=== PATIENT | female | born 1985 | race Caucasian/White ===

== ENCOUNTER 2020-12-11 20:22 | Outpatient (CLI) | payer SELFPAY ==
[2020-12-11 21:00] VITALS: BP 81/51
[2020-12-11] MEDS ORDERED: CYCLOBENZAPRINE 10 MG TAB PO ONE (21:53)
== END 2020-12-11 22:25 | disposition home or self-care (01) ==
LOC: TRG 20:22 → APU 20:23 → TRG 22:25
PROVIDERS: ATTEND Obstetrics & Gynecology
DX: O47.1 False labor at or after 37 completed weeks of gestation (principal); Z3A.38 38 weeks gestation of pregnancy
CPT/HCPCS: 59025

== ENCOUNTER 2020-12-14 09:15 | Inpatient (IN) | payer SELFPAY ==
[2020-12-14] MEDS ORDERED: BICITRA ORAL LIQD 30ML PO ONE (09:42)
[2020-12-14] MEDS ORDERED: FAMOTIDINE 20 MG/2 ML INJ IV ONE (09:42)
[2020-12-14] MEDS ORDERED: METOCLOPRAMIDE 10 MG/2 ML INJ IV ONE (09:42)
--- NOTE | 2020-12-14 09:45 | History and Physical Report ---
History of Present Illness Date of examination: 12/14/20 Date of admission: 12/14/20 09:15 Chief complaint: elective repeat section History of present illness: ERCS multiparity no records available Past History Past Surgical History: section - Obstetrical History : 3 Medications and Allergies Allergies Allergy/AdvReac Type Severity Reaction Status Date / Time No Known Allergies Allergy Verified 12/11/20 21:58 Home Medications Medication Instructions Recorded Confirmed Last Taken Type Ibuprofen [Motrin] 600 mg PO Q8H PRN #60 tablet 12/14/20 Unknown Rx oxyCODONE /ACETAMINOPHEN [Percocet 1 tab PO Q6HR PRN #20 tablet 12/14/20 Unknown Rx 5/325] Results Result Diagrams: 12/15/20 00:42 All other labs normal. Assessment and Plan NPO, connie cleaner to OR for procedure informed consent obtained with medical assembler Jazmin Pascual MD
[2020-12-14] MEDS ORDERED: OXYTOCIN DRIP 30 UNITS/500 ML BAG IV SCH ×2 (10:00→14:00)
--- NOTE | 2020-12-14 10:11 | Anesthesia Day of Surgery ---
Anesthesia Day of Surgery - Day of Surgery Patient Examined: Yes Patient H&P Reviewed: Yes Patient is NPO: Yes Beta Blockers: No Cardiac Clearance: No Pulmonary Clearance: No Beto's Test: N/A
--- NOTE | 2020-12-14 10:12 | Anesthesia Consultation ---
Anesthesia Consult and Med Hx Date of service: 12/14/20 - Airway Anesthetic Teeth Evaluation: Good ROM Head & Neck: Adequate Mental/Hyoid Distance: Adequate Mallampati Class: Class II Intubation Access Assessment: Good - Pulmonary Exam CTA: Yes - Cardiac Exam Cardiac Exam: RRR - Pre-Operative Health Status ASA Pre-Surgery Classification: ASA2 Proposed Anesthetic Plan: Spinal - Pre-Anesthesia Comment Pre-Anesthesia Comments: csection x2 - Pulmonary Hx Smoking: No Hx Asthma: No Hx Respiratory Symptoms: No SOB: No COPD: No Home Oxygen Therapy: No Hx Pneumonia: No Hx Sleep Apnea: No - Cardiovascular System Hx Hypertension: No Hx Coronary Artery Disease: No Hx Heart Attack/AMI: No Hx Angina: No Hx Percutaneous Transluminal Coronary Angioplasty (PTCA): No Hx Cardia Arrhythmia: No Hx Pacemaker: No Hx Internal Defibrillator: No Hx Valvular Heart Disease: No Hx Heart Murmur: No Hx Peripheral Vascular Disease: No - Central Nervous System Hx Neuromuscular Disorder: No Hx Seizures: No CVA: No Hx Back Pain: No Hx Psychiatric Problems: No - Gastrointestinal Hx Ulcer: No Hx Gastroesophageal Reflux Disease: No - Endocrine Hx Renal Disease: No Hx End Stage Renal Disease: No Hx Cirrhosis: No Hx Liver Disease: No Hx Insulin Dependent Diabetes: No Hx Non-Insulin Dependent Diabetes: No Hx Thyroid Disease: No Hx Hypothyroidism: No Hx Hyperthyroidism: No - Hematic Hx Anemia: No Hx Sickle Cell Disease: No - Other Systems Hx Alcohol Use: No Hx Substance Use: No Hx Cancer: No Hx Obesity: No
[2020-12-14] MEDS ORDERED: ONDANSETRON 4 MG/2 ML INJ IV PRN (10:13)
[2020-12-14] MEDS ORDERED: NALOXONE 0.4 MG/1 ML INJ IV PRN ×2 (10:13→13:22)
[2020-12-14] MEDS ORDERED: HYDROmorphone 1 MG/1 ML INJ IV PRN (10:13)
[2020-12-14] MEDS: LACTATED RINGERS 1,000 ML IV SCH ×2 (10:15→23:22)
[2020-12-14 10:32] LABS: Basophils # (Auto) 0.1 K/mm3 (0.0-0.1); Basophils % (Auto) 0.6 % (0.0-1.8); Eosinophils % (Auto) 0.4 % (0.0-4.3); Hematocrit 36.5 % (30.3-42.9); Hemoglobin 12.7 gm/dl (10.1-14.3); Lymphocytes # (Auto) 1.2 K/mm3 (1.2-5.4); Lymphocytes % (Auto) 12.8 % (13.4-35.0); Mean Corpuscular HGB Conc 35 % (30-34); Mean Corpuscular Volume 97 fl (79-97); Monocytes # (Auto) 0.5 K/mm3 (0.0-0.8); Monocytes % (Auto) 5.5 % (0.0-7.3); Platelet Count 199 K/mm3 (140-440); Red Blood Count 3.76 M/mm3 (3.65-5.03)
[2020-12-14] MEDS ORDERED: BUPIVACAINE/PF (0.5%) 5 MG/1 ML 30 ML VIAL INFILTRATI ONE (11:03)
[2020-12-14] MEDS ORDERED: dexAMETHasone 20 MG/5 ML VIAL ONE (11:04)
[2020-12-14] MEDS ORDERED: SODIUM CHLORIDE 0.9% 100 ML ONE (11:04)
[2020-12-14] MEDS ORDERED: ceFAZolin/Water 2 GM/20 ML 2 GM/20 ML SYRINGE IV ONE (11:29)
[2020-12-14] MEDS ORDERED: PHENYLEPHRINE/NS 1,000 MCG/10 ML SYRINGE (OR USE) IV ONE ×2 (11:46→12:45)
[2020-12-14] MEDS ORDERED: WATER FOR IRRIG STERILE 1,500 ML BOTTLE IR ONE (11:50)
[2020-12-14] MEDS ORDERED: SODIUM CHLORIDE 0.9% IRR 1,500 ML BOTTLE IR ONE (11:50)
[2020-12-14] MEDS ORDERED: ONDANSETRON 4 MG/2 ML INJ ONE ×2 (12:05)
[2020-12-14] MEDS ORDERED: FUROSEMIDE 40 MG/4 ML INJ ONE (12:44)
[2020-12-14] MEDS ORDERED: WITCH HAZEL/ GLYCERIN PAD TP PRN (13:22)
[2020-12-14] MEDS ORDERED: MORPHINE 2 MG/1 ML INJ IV PRN (13:22)
[2020-12-14] MEDS ORDERED: MORPHINE 4 MG/1 ML INJ IV PRN (13:22)
[2020-12-14] MEDS ORDERED: MAGNESIUM HYDROXIDE (MOM) ORAL LIQD UDC PO PRN (13:22)
[2020-12-14] MEDS ORDERED: KETOROLAC 30 MG/1 ML INJ IV PRN (13:22)
[2020-12-14] MEDS ORDERED: IBUPROFEN 600 MG TAB PO PRN (13:22)
[2020-12-14] MEDS ORDERED: SENNOSIDES 8.6 MG TAB PO PRN (13:22)
[2020-12-14] MEDS ORDERED: ACETAMINOPHEN 325 MG TAB PO PRN (13:22)
[2020-12-14] MEDS ORDERED: LANOLIN/ZINC/DIMETHICONE (LANSINOH) 7 GM TP PRN (13:22)
[2020-12-14] MEDS ORDERED: PROMETHAZINE 25 MG RECT SUPP PR PRN (13:22)
[2020-12-14] MEDS ORDERED: SIMETHICONE 80 MG CHEW TAB PO PRN (13:22)
--- NOTE | 2020-12-14 13:35 | Procedure Note ---
OB Delivery Note - Delivery Date of Delivery: 12/14/20 Surgeon: JORDAN LARSEN Estimated blood loss: other (600ml) - Section Preop diagnosis: repeat , desires sterilization Postop diagnosis: same section procedure: repeat low transverse, bilateral tubal ligation Disposition: PACU Complications: none Narrative: Preop diagnosis: IUP at 38.4 weeks, via section x2. Multiparity desires permanent surgical sterilization Postop diagnosis: Same,delivered Procedure: Repeat low transverse section via Pfannenstiel incision, Modified Ramez bilateral tubal ligation Surgeon: Dr. Jordan Larsen Anesthesia spinal Complications: intraoperative hematuria, suspect urethral trauma EBL 600ml IV fluids 800 mL Urine output 200mL, clear Drains Dewey to gravity Findings: Viable female with weight 3140gms and 8,9, normal uterus tubes and ovaries bilaterally Procedure: Patient was consented in OB triage,then taken to the operating room where she received excellent spinal anesthesia. She was then placed in the dorsal supine position with a leftward tilt. The abdomen was prepped and draped in a sterile fashion, and a timeout was verified. Adequate anesthesia was confirmed prior to the skin incision. A Pfannenstiel skin incision was made with a scalpel taken down to the underlying structures and the fascia was incised in the midline. The incision was extended laterally with curved Bovie cautery, the superior and inferior aspects of the fascial incisions were grasped with Sruthi clamps and the rectus muscles dissected sharply. The abdomen was entered bluntly in the midline carried down inferiorly with good visualization of the bladder. Patient was then noted to have multiple pelvic adhesions that were taken down sharply with Metzenbaum scissors. The vesicouterine peritoneum was tented with Ukrainian forceps and incised in the midline with Metzenbaum scissors and the vesicouterine peritoneum taken down sharply. Bladder blade was inserted, the uterine incision was made sharply with a scalpel. The inferior and superior aspect of the uterine incisions were extended bluntly, the baby's head was delivered atraumatically. The remainder of the delivery was atraumatic, no nuchal cord. The cord was clamped and cut and baby handed to waiting NICU team. Cord blood obtained. An intact placenta with three-vessel cord delivered manually. The uterus was then cleared of all clots and debris and the uterus exteriorized. The uterine incision was closed with 3 layers of 0 chromic with excellent hemostasis. The abdomen was then irrigated with warm normal saline and the uterus placed back into the abdomen atraumatically. A second look at the uterine incision and ensured hemostasis. At this point the Dewey catheter was noted to have blood-tinged urine.125 cc of sterile marker backfilled into the bladder to assure the integrity of the bladder. No spill into the abdomen was noted. Lasix 5 mg IV was given x1 dose with excellent urine output. Given assurance of the integrity of the bladder and the renal collecting system, the peritoneum was then closed with 3-0 Vicryl, the rectus muscles approximated with 3-0 Vicryl, and the fascia closed with 0 Vicryl in the usual fashion. The skin was then closed with 4-0 Monocryl. A pressure dressing was applied. All sponge needle and instrument counts were correct x2. There were no complications. Mom and baby to PACU in stable condition. [id number] mL Jazmin Larsen MD - Infant A at 1 minute: 8 at 5 minutes: 9 Gender: Female (weight 3140gms)
--- NOTE | 2020-12-14 13:50 | Progress Note ---
Spinal Anesthesia Block - Spinal Anesthesia Block Start Time: 11:36 Stop Time: 11:42 Performed by:: SARAH SAMUEL Procedure: Patient IDed, H&P reviewed, all questions and concerns were answered, and consent was signed. Timeout was performed at bedside. Patient in sitting position. Sterile prep and drape was performed. [3] ml of 1% lidocaine skin wheal at L[3]- L [4]. Needle introducer advanced. 25 gauge spinal needle advanced. Clear, free flowing CSF. negative blood, negative paresthesia. Spinal dose given. All needles removed. Patient tolerated procedure.
--- NOTE | 2020-12-14 13:54 | Progress Note ---
Objective - Constitutional Vitals: Vital Signs - 12hr 12/14/20 12/14/20 12/14/20 09:50 09:51 09:55 Temperature Pulse Rate 103 H 101 H 107 H Respiratory Rate Blood Pressure 106/63 O2 Sat by Pulse 98 97 Oximetry 12/14/20 12/14/20 12/14/20 10:00 10:09 10:36 Temperature 98.6 F Pulse Rate 106 H 124 H Respiratory 20 Rate Blood Pressure O2 Sat by Pulse 98 98 Oximetry 12/14/20 12/14/20 12/14/20 10:41 10:46 10:51 Temperature Pulse Rate 103 H 99 H 86 Respiratory Rate Blood Pressure O2 Sat by Pulse 98 100 99 Oximetry 12/14/20 12/14/20 12/14/20 10:56 11:01 11:06 Temperature Pulse Rate 89 79 95 H Respiratory Rate Blood Pressure O2 Sat by Pulse 99 99 100 Oximetry 12/14/20 12/14/20 12/14/20 11:11 11:16 13:30 Temperature 97.6 F Pulse Rate 86 74 54 L Respiratory 14 Rate Blood Pressure 113/60 O2 Sat by Pulse 98 99 98 Oximetry 12/14/20 12/14/20 12/14/20 13:35 13:40 13:45 Temperature Pulse Rate 52 L 53 L 54 L Respiratory 14 15 15 Rate Blood Pressure 115/68 98/48 107/69 O2 Sat by Pulse 98 98 98 Oximetry - Labs CBC & Chem 7: 12/14/20 10:14 Labs: Abnormal lab results 12/14/20 Range/Units 10:14 MCH 34 H (28-32) pg MCHC 35 H (30-34) % Lymph % (Auto) 12.8 L (13.4-35.0) % Seg Neutrophils % 80.7 H (40.0-70.0) % Seg Neutrophils # 7.9 H (1.8-7.7) K/mm3 Regional Anesthesia Block - Regional Anesthesia Block Start Time: 13:16 Stop Time: 13:24 Performed By:: SARAH SAMUEL Procedure: Patient consented for TAP block for post surgical pain management. Patient identified, monitors placed, and time out performed. TAP identified bilaterally via ultrasound. Skin prepped bilaterally with [chlorhexidine] and [22g stimuplex] needle advanced to the TAP. [Marcaine 0.22% 35ml] injected under ultrasound guidance on the [left] side. [Marcaine 0.22% 35ml] injected under ultrasound guidance on the [right] side. Negative aspiration every 5mL, No change in heart rate or rhythm. Patient tolerated the procedure well. No apparent complications seen.
[2020-12-14] MEDS: KETOROLAC 30 MG/1 ML INJ IV PRN ×2 (16:50→23:22)
--- NOTE | 2020-12-15 09:49 | Post Anesthesia Evaluation ---
- Post Anesthesia Evaluation Patient Participated: Yes Airway Patent: Yes Stable Respiratory Function: Yes Nausea/Vomiting: No Temp > 96.8F: Yes Pain Manageable: Yes Adequeate Hydration: Yes Anesthesia Complications: No Block Receding Appropriately: Yes Patient on Ventilator: No
[2020-12-15] MEDS: IBUPROFEN 800 MG TAB PO PRN (14:01)
--- NOTE | 2020-12-15 15:56 | Progress Note ---
Assessment and Plan A: Postop Day 1 Stable P: Follow routine postop orders Remove dressing covering incision tomorrow Subjective - Subjective Date of service: 12/15/20 Principal diagnosis: s/p RLTCS; Day 1 Patient reports: appetite normal, voiding normally, pain well controlled, flatus, ambulating normally [place]: doing well, bottle feeding Objective - Vital Signs Latest vital signs: Vital Signs Temp Pulse Resp BP BP Pulse Ox 12/15/20 08:10 98.2 F 71 20 132/78 12/15/20 04:40 97.8 F 58 L 18 103/57 100 12/15/20 00:56 97.8 F 61 18 115/59 96 12/14/20 20:44 97.8 F 65 18 100/52 95 Intake and Output 12/15/20 12/15/20 12/15/20 06:59 14:59 22:59 Intake Total 240 Output Total 900 400 Balance -900 -160 Intake: Oral 240 Output: Urine 900 400 Indwelling Catheter 600 Void 300 400 Other: Total, Intake Amount 120 Total, Output Amount 300 400 # Voids Void 1 - Exam Breasts: Present: normal Cardiovascular: Present: Regular rate, Normal S1, Normal S2 Lungs: Present: Clear to auscultation, Normal air movement Abdomen: Present: normal appearance, soft, normal bowel sounds Uterus: Present: normal, firm, fundal height at umbilicus Extremities: Present: normal Incision: Present: dry, dressed
[2020-12-15] MEDS: HYDROcodone/ACETAMINOPHEN 5-325 MG TAB PO PRN (17:51)
[2020-12-16] MEDS: HYDROcodone/ACETAMINOPHEN 5-325 MG TAB PO PRN ×2 (03:33→10:46)
--- NOTE | 2020-12-16 11:21 | Progress Note ---
Assessment and Plan POD # 2 A: s/p Repeat LTCS with BTL p: Continue routine pp care D/C home if stable per pt - Patient Problems (1) delivery delivered Current Visit: Yes Status: Acute Subjective - Subjective Date of service: 12/16/20 Principal diagnosis: s/p RLTCS; Day 1 Patient reports: appetite normal, voiding normally, pain well controlled, flatus, ambulating normally [place]: doing well, bottle feeding Objective - Vital Signs Latest vital signs: Vital Signs Temp Pulse Resp BP BP Pulse Ox 12/16/20 10:46 18 12/16/20 07:15 98.0 F 72 18 104/55 98 12/15/20 23:51 98.3 F 67 18 109/50 97 12/15/20 16:00 98.4 F 74 18 98/58 99 Intake and Output 12/15/20 12/16/20 12/16/20 22:59 06:59 14:59 Intake Total 480 480 Balance 480 480 Intake: Oral 240 Intake, Free Water 240 480 Other: Total, Intake Amount 240 # Voids Void 1 1 - Exam Breasts: Present: normal Abdomen: Present: normal appearance, soft, normal bowel sounds Vulva: both: normal Uterus: Present: normal, firm, fundal height below umbilicus Extremities: Present: normal Incision: Present: normal, dry, intact
--- NOTE | 2020-12-16 11:25 | Discharge Summary ---
Providers - Providers Date of Admission: 12/14/20 09:15 Date of discharge: 12/16/20 Attending physician: JORDAN LARSEN MD Primary care physician: JORDAN LARSEN MD Hospitalization Reason for admission: section Delivery: Procedure: bilateral tubal ligation, repeat low transverse Episiotomy: none Laceration: none Incision: normal, dry, intact Other procedures: tubal ligation complications: none Discharge diagnosis: IUP at term delivered baby: female Hospital course: Pt was admitted to [facility] for a repeat LTCS and a BTL. No pp complications were noted and pt was d/c'd home in stable condition. Condition at discharge: Stable Disposition: DC-[id number] TO HOME OR SELFCARE - Discharge Diagnoses (1) delivery delivered Status: Acute Plan - Discharge Medications Prescriptions: Ibuprofen [Motrin] 600 mg PO Q8H PRN #60 tablet PRN Reason: Pain oxyCODONE /ACETAMINOPHEN [Percocet 5/325] 1 tab PO Q6HR PRN #20 tablet PRN Reason: Pain - Provider Discharge Summary Activity: routine, no sex for 6 weeks, no heavy lifting 4 weeks, no strenuous exercise Diet: routine Instructions: routine Additional instructions: [] Smoking cessation referral if applicable(refer to patient education folder for contact #) [] Refer to [facility] Booklet Call your doctor immediately for: * Fever > 100.5 * Heavy vaginal bleeding ( >1 pad per hour) * Severe persistent headache * Shortness of breath * Reddened, hot, painful area to leg or breast * Drainage or odor from incision. * Keep incision clean and dry at all times and follow doctor's instructions regarding bathing/showering - Follow up plan Follow up: JORDAN LARSEN MD [Primary Care Provider] - 14 Days
[2020-12-16] MEDS: IBUPROFEN 800 MG TAB PO PRN (12:57)
[2020-12-16 18:32] VITALS: BP 110/46
== END 2020-12-16 18:34 | disposition home or self-care (01) | DRG 785 ==
LOC: APU 09:15 → OB 15:20
PROVIDERS: ADMIT Obstetrics & Gynecology; ATTEND Obstetrics & Gynecology
PROC: 10D00Z1 Extraction of Products of Conception, Low, Open Approach (ICD-10-PCS; principal; 2020-12-14)
PROC: 0UB70ZZ Excision of Bilateral Fallopian Tubes, Open Approach (ICD-10-PCS; 2020-12-14)
DX: O34.211 Maternal care for low transverse scar from previous cesarean delivery (principal); Z3A.38 38 weeks gestation of pregnancy; Z37.0 Single live birth; O99.892 Other specified diseases and conditions complicating childbirth; Z20.822 Contact with and (suspected) exposure to COVID-19; N99.81 Other intraoperative complications of genitourinary system; R31.9 Hematuria, unspecified
CPT/HCPCS: 36415; 85014; 85018; 85025; 86592; 86850; 86900; 86901; 88302; G0378; J1100; J1170; J1885; J1940; J2370; J2405; J2765; J3490; J7120; U0003